=== PATIENT | male | born 1965 | race Caucasian/White ===

== ENCOUNTER 2023-07-19 08:21 | Outpatient (RCR) | payer BC, SELFPAY | END 2023-07-19 23:59 | disposition home or self-care (01) | LOC: RPT 08:21 | PROVIDERS: ATTENDING PHYSICIAN Urology; FAMILY PHYSICIAN Internal Medicine | DX: R35.1 Nocturia (principal); N32.81 Overactive bladder; M62.89 Other specified disorders of muscle; Z73.6 Limitation of activities due to disability | CPT/HCPCS: 97163; 97530 ==

== ENCOUNTER 2023-09-20 13:47 | Outpatient (RCR) | payer BC, SELFPAY | END 2023-09-20 23:59 | disposition home or self-care (01) | LOC: RPT 13:47 | PROVIDERS: ATTENDING PHYSICIAN Urology; FAMILY PHYSICIAN Internal Medicine | DX: R35.1 Nocturia (principal); N32.81 Overactive bladder; Z73.6 Limitation of activities due to disability; R15.0 Incomplete defecation; R15.9 Full incontinence of feces | CPT/HCPCS: 97112; 97140; 97530 ==

== ENCOUNTER 2023-10-04 13:28 | Outpatient (RCR) | payer BC, SELFPAY | END 2023-10-04 23:59 | disposition home or self-care (01) | LOC: RPT 13:28 | PROVIDERS: ATTENDING PHYSICIAN Urology; FAMILY PHYSICIAN Internal Medicine | DX: N52.9 Male erectile dysfunction, unspecified (principal); R35.1 Nocturia; N32.81 Overactive bladder; M62.89 Other specified disorders of muscle; Z73.6 Limitation of activities due to disability | CPT/HCPCS: 97140; 97530 ==

== ENCOUNTER 2023-11-27 12:03 | Outpatient (RCR) | payer BC, SELFPAY | END 2023-11-27 23:59 | disposition home or self-care (01) | LOC: RPT 12:03 | PROVIDERS: ATTENDING PHYSICIAN Urology; FAMILY PHYSICIAN Internal Medicine | DX: N52.9 Male erectile dysfunction, unspecified (principal); R35.1 Nocturia; N32.81 Overactive bladder; M62.89 Other specified disorders of muscle; Z73.6 Limitation of activities due to disability | CPT/HCPCS: 97014; 97112; 97140; 97530 ==

== ENCOUNTER 2023-12-28 08:05 | Outpatient (RCR) | payer BC, SELFPAY | END 2023-12-28 23:59 | disposition home or self-care (01) | LOC: RPT 08:05 | PROVIDERS: ATTENDING PHYSICIAN Urology; FAMILY PHYSICIAN Internal Medicine | DX: N52.9 Male erectile dysfunction, unspecified (principal); R35.1 Nocturia; N32.81 Overactive bladder; M62.89 Other specified disorders of muscle; Z73.6 Limitation of activities due to disability | CPT/HCPCS: 97014; 97112; 97140; 97530 ==

== ENCOUNTER 2024-01-16 06:47 | Outpatient (RCR) | payer BC, SELFPAY | END 2024-01-16 23:59 | disposition home or self-care (01) | LOC: RPT 06:47 | PROVIDERS: ATTENDING PHYSICIAN Urology; FAMILY PHYSICIAN Internal Medicine | DX: N52.9 Male erectile dysfunction, unspecified (principal); R35.1 Nocturia; N32.81 Overactive bladder; M62.89 Other specified disorders of muscle; Z73.6 Limitation of activities due to disability | CPT/HCPCS: 97014; 97112; 97140; 97530 ==

== ENCOUNTER 2024-02-20 13:01 | Outpatient (RCR) | payer BC, SELFPAY | END 2024-02-20 23:59 | disposition home or self-care (01) | LOC: RPT 13:01 | PROVIDERS: ATTENDING PHYSICIAN Urology; FAMILY PHYSICIAN Internal Medicine | DX: N52.9 Male erectile dysfunction, unspecified (principal); R35.1 Nocturia; N32.81 Overactive bladder; M62.89 Other specified disorders of muscle; Z73.6 Limitation of activities due to disability | CPT/HCPCS: 97530; 97535 ==

== ENCOUNTER 2024-12-19 07:25 | Outpatient (RCR) | payer BC, SELFPAY | END 2024-12-19 23:59 | disposition home or self-care (01) | LOC: ROT 07:25 | PROVIDERS: ATTENDING PHYSICIAN Student in an Organized Health Care Education/Training Program; FAMILY PHYSICIAN Internal Medicine | DX: M79.642 Pain in left hand (principal); Z73.6 Limitation of activities due to disability | CPT/HCPCS: 97018; 97022; 97110; 97140; 97166; 97535 ==

== ENCOUNTER 2025-01-07 09:04 | Outpatient (RCR) | payer BC, SELFPAY | END 2025-01-07 23:59 | disposition home or self-care (01) | LOC: ROT 09:04 | PROVIDERS: ATTENDING PHYSICIAN Student in an Organized Health Care Education/Training Program; FAMILY PHYSICIAN Internal Medicine | DX: M79.642 Pain in left hand (principal); Z73.6 Limitation of activities due to disability | CPT/HCPCS: 97018; 97110; 97140; 97535 ==

== ENCOUNTER 2025-02-04 08:49 | Outpatient (RCR) | payer BC, SELFPAY | END 2025-02-04 23:59 | disposition home or self-care (01) | LOC: ROT 08:49 | PROVIDERS: ATTENDING PHYSICIAN Student in an Organized Health Care Education/Training Program; FAMILY PHYSICIAN Internal Medicine | DX: M79.642 Pain in left hand (principal); Z73.6 Limitation of activities due to disability | CPT/HCPCS: 97018; 97110; 97535 ==